=== PATIENT | male | born 1960 | race Caucasian/White ===

== ENCOUNTER → 2017-06-12 12:06 | Outpatient (POV) | payer MEDICARE, SELFPAY | PROVIDERS: PCP Internal Medicine; Visit Provider Internal Medicine | DX: Z00.00 Encounter for general adult medical examination without abnormal findings (principal) ==

== ENCOUNTER → 2017-07-04 13:57 | Outpatient (CLI) | payer MEDICARE, SELFPAY ==
--- NOTE | 2017-07-04 14:09 | CT_ITS ---
EXAM: CT LUNG LOW DOSE WO CONTRAST COMPARISON: 03/25/2015 HISTORY: 57-year-old male, with positive smoking history, asymptomatic ORDERING PHYSICIAN: Claude Sanchez MD PATIENT AGE: 57 years TECHNIQUE: The exam was performed on a GE Light Speed [address] scanner using 2.90 mGy CTDI. A low dose helical CT CHEST was performed on a multi-detector scanner. All CT scans at the facility use one or more dose reduction, viz: automated exposure control; ma/kV adjustment per patient size (including targeted exams where dose is matched to indication; i.e. head); or iterative reconstruction technique. The LDCT was performed in a facility that meets the criteria for the screening program. Data regarding this exam was submitted to ACR which is an approved registry. The order for this exam indicates that it came as a result of a lung cancer screening counseling shard decision-making visit that included all the elements required of such a visit including smoking cessation. The radiologist interpreting this exam meets the [facility] criteria for the LDCT lung cancer screening program. The exam is reported using the Lung-RADS classification scale and reported to the ACR registry. NOTE: This study was performed for the specific purposes of lung cancer screening and is not an alternative to diagnostic chest CT. RADIATION DOSE: CTDI vol(CT dose Index-volume) = 2.90mG DLP (Dose Length Product) = 130.37 mGcm FINDINGS: Severe centrilobular and panlobular emphysematous changes are present with bullous change in the upper lobes left greater than right. 7 mm irregular opacity right upper lobe unchanged. Scattered areas of parenchymal fibrosis once again noted 5 mm noncalcified nodule right lung base posteriorly not readily apparent on the previous study. 5 mm well-defined nodule right lower lobe posteriorly unchanged. 7 mm area of probable parenchymal fibrosis right lower lobe unchanged. 5 mm nodular opacity of the left upper lobe laterally not readily apparent previously. Fibrotic changes inferior lingula. 8 mm parenchymal opacity left upper lobe posteriorly not readily apparent previously possibly related to an area of parenchymal fibrosis. 18 mm node is present in the anterior mediastinum unchanged. Other smaller nodes are present unchanged. There are coronary artery calcifications. IMPRESSION: 1. Lung RADS Category: 3, probably benign 2. Other findings: Severe centrilobular and paraseptal emphysema with bullous change and mild mediastinal adenopathy RECOMMENDATIONS: [address] follow-up in regards to the new 8 mm opacity in the left upper lobe and 7 mm nodular opacity in the right lower lobe
== END ==
PROVIDERS: PCP Family Medicine; Visit Provider Internal Medicine
DX: Z87.891 Personal history of nicotine dependence (principal); Z12.2 Encounter for screening for malignant neoplasm of respiratory organs; R06.02 Shortness of breath; J43.9 Emphysema, unspecified

== ENCOUNTER → 2017-10-02 10:11 | Outpatient (POV) | payer MEDICARE, SELFPAY | PROVIDERS: PCP Family Medicine; Visit Provider Internal Medicine | DX: Z00.00 Encounter for general adult medical examination without abnormal findings (principal) ==

== ENCOUNTER → 2018-01-01 09:28 | Outpatient (CLI) | payer MEDICARE, SELFPAY ==
--- NOTE | 2018-01-01 09:33 | CT_ITS ---
CT chest wo con HISTORY: Follow-up lung nodule, COPD, emphysema, smoker, tobacco use ITS.REASON: COPD WITH EMPHYSEMA ORDERING PHYSICIAN: Claude Sanchez MD PATIENT AGE: 57 years COMPARISON: 03/15/2015 Technique: Axial images obtained with sagittal and coronal reformats. All CT scans at the facility use one or more dose reduction, viz: automated exposure control, ma/kV adjustment per patient size (including targeted exams where dose is matched to indication, i.e. head), or iterative reconstruction technique. FINDINGS: There are scattered mildly prominent lymph nodes in the mediastinum the largest of which is anterior to the root of the pulmonary artery measuring 2.9 x 1.7 cm only slightly more prominent compared to the previous exam at 2.8 x 1.6 cm. Normal heart size. There are severe panlobular emphysematous changes with bolus changes in the lung apices more extensive on the left compared to the right. There are scattered areas of parenchymal scarring similar to the previous exam. There is a 4 mm noncalcified nodule in the right lower lobe posteriorly not significantly changed. There is mild diffuse bronchial thickening. There is an 8 mm nodule in the right upper lobe which is felt to be due to an area of parenchymal fibrosis not significantly changed. No central obstructing lesions. No bronchiectasis. No effusions. No suspicious pulmonary nodules. Upper abdominal images show fatty liver. No acute bony anomalies. IMPRESSION: 1. Severe panlobular emphysema with bullous changes and scattered areas of scarring which are stable. No change 4 mm noncalcified nodule in the right upper lobe 8 mm area of parenchymal scarring right upper lobe 2. Mild mediastinal adenopathy with the largest node on slightly more prominent compared to the previous exam
[2018-01-01 15:40] VITALS: BP 115/70; BP 140/90; PULSE 65; PULSE 81; RESP 16; RESP 22; O2SAT 93; O2SAT 97
[2018-01-01 15:43] VITALS: PULSE 65; PULSE 70
== END ==
PROVIDERS: PCP Family Medicine; Visit Provider Internal Medicine
DX: J43.9 Emphysema, unspecified (principal)
CPT/HCPCS: 71250; 94060; 94618; 94640; 94727; 94729

== ENCOUNTER → 2018-04-23 09:40 | Outpatient (POV) | payer MEDICARE, SELFPAY | PROVIDERS: Visit Provider Internal Medicine | DX: Z00.00 Encounter for general adult medical examination without abnormal findings (principal) ==

== ENCOUNTER → 2022-07-11 11:15 | Outpatient (CLI) | payer MEDICARE, SELFPAY ==
[2022-07-11 14:13] LABS: Alanine Aminotransferase 17 U/L (12-78); Albumin Level 3.9 g/dl (3.5-5.0); Albumin/Globulin Ratio 1.4 (1.1-1.8); Alkaline Phosphatase 92 U/L (38-126); Anion Gap 16.4 mEq/L (5-15); Aspartate Amino Transferase 23 U/L (17-59); Bilirubin,Total 0.4 mg/dl (0.2-1.3); Blood Urea Nitrogen 8 mg/dl (9-20); Calcium 8.8 mg/dl (8.4-10.2); Carbon Dioxide 26 mmol/L (22.0-30.0); Chloride 102 mmol/L (98-107); Chol/HDL Ratio 5.4 (1-3.5); Cholesterol 193 mg/dl (140-200); Estimated Glomerular Filt Rate 98 ml/min (>60); GFR (African American) 119 ML/MIN (>60); Globulin 2.8 g/dL (1.3-3.2); Glucose 84 mg/dl (74-100); HDL Cholesterol 36 mg/dl (40-60); Potassium 4.4 mmoL/L (3.5-5.1); Sodium 140 mmol/L (136-145); Total Protein,Serum 6.7 g/dl (6.3-8.2); Triglycerides 203 mg/dl (30-150); VLDL Cholesterol 41 mg/dL (0-40)
[2022-07-11 14:16] LABS: Basophils # 0.1 K/mm3 (0-0.2); Basophils % 0.6 % (0.1-2.0); Eosinophils # 0.1 K/mm3 (0.0-0.4); Eosinophils % 0.7 % (0.1-12.0); Hematocrit 47.9 % (42.0-52.0); Lymphocytes # 2.5 K/mm3 (0.7-4.5); Lymphocytes % 17.8 % (10-50); Mean Corpuscular HGB Conc 31.3 g/dL (31.8-35.4); Mean Corpuscular Hemoglobin 28.4 pg (27.0-31.2); Mean Corpuscular Volume 90.7 fl (80-94); Mean Platelet Volume 8.2 fl (7.4-10.4); Monocytes # 0.9 K/mm3 (0.1-1.0); Neutrophils # 10.6 K/mm3 (1.8-7.8); Neutrophils % 74.8 % (37.0-80.0); Platelet Count 425 K/mm3 (142-424); Red Blood Count 5.28 M/mm3 (4.60-6.20); Red Cell Distribution Width 15.6 % (11.5-17.5); White Blood Count 14.2 K/mm3 (4.8-10.8)
[2022-07-11 14:42] LABS: Prostate Specific Ag Screen 1.2 ng/ml (0.0-4.0)
== END ==
PROVIDERS: PCP Family Medicine; Visit Provider Family Medicine
DX: F41.9 Anxiety disorder, unspecified (principal); Z12.5 Encounter for screening for malignant neoplasm of prostate; K42.9 Umbilical hernia without obstruction or gangrene; E78.00 Pure hypercholesterolemia, unspecified
CPT/HCPCS: 80053; 80061; 85025; G0103

== ENCOUNTER → 2022-07-17 12:59 | Outpatient (CLI) | payer MEDICARE, SELFPAY ==
--- NOTE | 2022-07-17 13:00 | US_ITS ---
FINAL REPORT CLINICAL HISTORY: claudication, HLD, smoker, FINDINGS: ANKLE-BRACHIAL PRESSURE INDICES Pressure indices are as follows: RIGHT LOWER EXTREMITY: Ankle-brachial pressure index: 0.58 LEFT LOWER EXTREMITY: Ankle-brachial pressure index: 0.55 IMPRESSION: Findings consistent with moderate bilateral vascular disease. Reviewed, Interpreted and Dictated by Corey Castro III, MD Transcribed by Connie Parra Authenticated and [facility][1]
--- NOTE | 2022-07-17 13:00 | CA_ITS ---
FINAL REPORT TECHNIQUE: Color Doppler, duplex Doppler and schafer scale sonography of the bilateral neck arterial vasculature was performed. Velocities were measured in the carotid arteries. Stenosis evaluation based on the validated velocity criteria. CLINICAL HISTORY: bruit FINDINGS: The peak systolic velocity of the right common carotid artery is 86.6 cm/s. The peak systolic velocity of the right internal carotid artery is 77.4 cm/s and end diastolic velocity 21.8 cm/s. A mild amount of plaque is present. The right external carotid artery is patent. The right vertebral artery is patent with antegrade flow. The peak systolic velocity of the left common carotid artery is 116 cm/s. The peak systolic velocity of the left internal carotid artery is 93.7 cm/s and end diastolic velocity 30.2 cm/s. A mild amount of plaque is present. The left external carotid artery is patent.The left vertebral artery is patent with antegrade flow. IMPRESSION: Less than 50% bilateral carotid stenoses. Bilateral patent vertebral arteries with antegrade flow. If indicated, CTA or MRA could further evaluate. Reviewed, Interpreted and Dictated by Corey Castro III, MD Transcribed by Connie Parra Authenticated and [facility]
== END ==
PROVIDERS: PCP Family Medicine; Visit Provider Family Medicine
DX: I73.9 Peripheral vascular disease, unspecified (principal); R09.89 Other specified symptoms and signs involving the circulatory and respiratory systems
CPT/HCPCS: 93880; 93923

== ENCOUNTER → 2022-07-26 10:28 | Outpatient (CLI) | payer MEDICARE, SELFPAY ==
--- NOTE | 2022-07-26 10:44 | ECG_ITS ---
APPROVED REPORT Exam: Resting ECG HR:72 bpm ECG Measurements Heart Rate 72 AXES NH 175 P 51 QRSd 135 QRS 93 QT 383 T 47 QTc 407 Conclusion SINUS RHYTHM RIGHT BUNDLE BRANCH BLOCK [120+ ms QRS DURATION, UPRIGHT V1, 40+ ms S IN I/aVL/V4/V5/V6] ABNORMAL ECG UNCONFIRMED REPORT Electronically signed by : Dakota Carney MD 07/26/2022 21:17:55
[2022-07-26 11:19] LABS: Troponin I < 0.01 ng/ml (0.00-0.034)
== END ==
PROVIDERS: PCP Family Medicine; Visit Provider Physician Assistant
DX: R07.9 Chest pain, unspecified (principal); R94.31 Abnormal electrocardiogram [ECG] [EKG]
CPT/HCPCS: 36415; 84484; 93005

== ENCOUNTER 2022-07-27 13:13 | Observation (INO) | payer MEDICARE, SELFPAY ==
[2022-07-27] VITALS (33 sets, daily range): BP systolic 129–180; BP diastolic 56–103; PULSE 60–88; RESP 16–20; O2SAT 92–99; BMI 26.6
--- NOTE | 2022-07-27 08:19 | IR_ITS ---
APPROVED REPORT Patient Location: Outpatient Payroll Technician: OMAR Aguilar RT (R) PROCEDURES Left heart catheterization Left ventriculogram Selective coronary angiogram Selective engagement of the left subclavian artery Left subclavian artery selective angiogram Pigtail catheter in the abdominal aorta Abdominal aortography Repositioning of the catheter in the abdominal aorta Bilateral iliofemoral runoff Bare-metal balloon mounted stent deployment to the right common iliac artery Bare-metal self-expanding stent deployment to the right external iliac artery in a noncontiguous manner INDICATION SIMON 0.5, Known subclavian artery stenosis/occlusion, High pretest likelihood for coronary artery disease with angina pectoris, Severe stenosis in the right common and right external iliac artery Informed consent was obtained prior to the procedure. COMPLICATIONS NONE Estimated Blood Loss: LESS THAN 10 ML TECHNIQUE One percent lidocaine was used to anesthetize the right groin. The right femoral artery was accessed via the Seldinger technique. A 4-Solomon Islander sheath was placed in the right femoral artery. The JL-4 and JR-4 catheter was also used to perform left heart catheterization left ventriculogram and selective coronary angiogram. The JR4 catheter was used to perform selective angiography of the left subclavian artery. Immediate exchange was performed each time due to the severe iliofemoral disease. A pigtail catheter was placed in the abdominal aorta and abdominal aortography was performed. The catheter was then repositioned and bilateral iliofemoral runoff was performed. Following this therapeutic heparin was administered and the 4 [place] Islander sheath was exchanged for a 6 [place] Islander sheath. Therapeutic ACT was administered giving a therapeutic ACT. An advantage wire was already placed in the aorta through the right groin and an 8 mm x 57 mm balloon mounted stent was deployed in the right common iliac artery at 12 sharron reducing the severe to critical stenosis to 0%. An additional 7 mm x 40 mm self-expanding stent was placed in the distal portion of the right external iliac artery. This was expanded with a 7 mm x 20 mm balloon at 12 sharron. An additional 7 mm x 20 mm self-expanding stent was placed proximal to the first self-expanding stent yet still overlapping the proximal portion and then deployed. The 7 mm x 20 mm balloon was then advanced and deployed at 12 sharron up and down both stents measuring the 2 and making sure they were adequately postdilated. Excellent angiographic results were obtained therefore the apparatus was removed the patient was transferred to the postop putting in stable condition for sheath removal ANGIOGRAPHIC RESULTS The left main artery Normal The left anterior descending artery Is small caliber and widely patent with no stenotic plaque greater than 10% The circumflex artery Dominant normal The right coronary artery Is a nondominant vessel and has 350% stenoses in the proximal and midportion The CAREY ventriculogram reveals Normal 65% The left ventricular end-diastolic pressure 10 mmHg Left subclavian artery is proximally occluded Distal abdominal aorta is mildly atheromatous. Right common iliac artery has a proximal calcified 80% stenosis. The right internal iliac artery is patent. The right external iliac artery has a long tubular 70 to 80% stenosis. The right profunda femoris artery is normal. The right superficial femoral artery is ostially occluded and then reconstitutes at the popliteal level. The anterior tibialis artery is patent in the proximal segment and appears to become subtotally occluded. The right posterior tibialis artery is widely patent as is the right peroneal artery.
[2022-07-27 10:14] LABS: Basophils # 0.1 K/mm3 (0-0.2); Basophils % 0.6 % (0.1-2.0); Eosinophils # 0.3 K/mm3 (0.0-0.4); Eosinophils % 2.3 % (0.1-12.0); Hemoglobin 14.5 g/dL (14.1-18.0); Lymphocytes # 2.4 K/mm3 (0.7-4.5); Lymphocytes % 17.9 % (10-50); Mean Corpuscular HGB Conc 30.8 g/dL (31.8-35.4); Mean Corpuscular Volume 90.8 fl (80-94); Mean Platelet Volume 7.1 fl (7.4-10.4); Monocytes # 0.8 K/mm3 (0.1-1.0); Monocytes % 6.1 % (1.7-9.3); Neutrophils # 9.8 K/mm3 (1.8-7.8); Platelet Count 427 K/mm3 (142-424); Red Blood Count 5.18 M/mm3 (4.60-6.20); Red Cell Distribution Width 15.1 % (11.5-17.5); White Blood Count 13.5 K/mm3 (4.8-10.8)
[2022-07-27 10:15] LABS: Chloride 96 mmol/L (98-107)
[2022-07-27 10:16] LABS: Potassium 4.4 mmoL/L (3.5-5.1); Sodium 138 mmol/L (136-145)
[2022-07-27 10:18] LABS: Blood Urea Nitrogen 10 mg/dl (9-20); Creatinine Clearance Estimated 91 mL/min (50-200); Estimated Glomerular Filt Rate 98 ml/min (>60); GFR (African American) 119 ML/MIN (>60)
[2022-07-27 10:19] LABS: Anion Gap 17.4 mEq/L (5-15); Carbon Dioxide 29 mmol/L (22.0-30.0); Glucose 113 mg/dl (74-100)
--- NOTE | 2022-07-27 13:21 | HMH.PHAINT1 ---
Pharmacy Intervention Comments: home medication list verified using list from outpatient pharmacy
--- NOTE | 2022-07-27 13:27 | P.HP_ITS ---
[facility] Disclaimer: The information contained in this section may have been updated after the patient was seen, as this information can be updated by other users. Medical History Abnormal ankle brachial index (SIMON) Abnormal electrocardiogram [ECG] [EKG] Chest pain Chest pain Claudication Dizziness Dyspnea PAD (peripheral artery disease) Subclavian arterial stenosis Social History (Updated 07/27/22 @ 09:48 by Vannesa Beltran RN) Smoking Status: Current every day smoker alcohol intake: never current occupational status: retired Travel in the last 8 weeks: None Meds Home Medications and Allergies Home Medications Medication Instructions Recorded Confirmed Type albuterol sulfate 90 mcg/actuation 1 puff inhalation QID PRN 05/24/22 07/27/22 Rx aerosol inhaler (Ventolin HFA) shortness of breath or wheezing #8.5 grams alprazolam 1 mg tablet (Xanax) 1 mg PO TID PRN anxiety #60 tabs 07/11/22 07/27/22 Rx paroxetine HCl 20 mg tablet 20 mg PO DAILY mood 07/26/22 07/27/22 History aspirin 81 mg chewable tablet 81 mg PO DAILY #30 tabs 07/27/22 Rx clopidogrel 75 mg tablet (Plavix) 75 mg PO DAILY #30 tabs 07/27/22 Rx fluticasone fur. 100 mcg-umeclid 1 inh inhalation DAILY Allergy 07/27/22 07/27/22 History 62.5 mcg-vilant 25 mcg symptoms inhalat.powder (Trelegy Ellipta) hydrocodone 5 mg-acetaminophen 325 1 tab PO TIDP PRN Pain 07/27/22 07/27/22 History mg tablet New Prescriptions to Start Prescriptions: aspirin Sylvester Lewis clopidogrel [Plavix] Sylvester Lewis Allergies Allergy/AdvReac Type Severity Reaction Status Date / Time No Known Allergies Allergy Verified 07/27/22 09:57 Exam Data for Last 24 hours Vital signs and Labs for Last 24 Hours: Pulse Resp BP Pulse Ox 65 18 144/81 H 95 07/27/22 13:15 07/27/22 13:15 07/27/22 13:15 07/27/22 13:15 Laboratory Results - last 24 hr 07/27/22 10:00: WBC 13.5 H, RBC 5.18, Hgb 14.5, Hct 47.0, MCV 90.8, MCH 28.0, MCHC 30.8 L, RDW 15.1, Plt Count 427 H, MPV 7.1 L, Neut % (Auto) 73.0, Lymph % (Auto) 17.9, [place] % (Auto) 6.1, Eos % (Auto) 2.3, Baso % (Auto) 0.6, Neut # (Auto) 9.8 H, Lymph # (Auto) 2.4, [place] # (Auto) 0.8, Eos # (Auto) 0.3, Baso # (Auto) 0.1 07/27/22 10:00: Sodium 138, Potassium 4.4, Chloride 96 L, Carbon Dioxide 29, Anion Gap 17.4 H, BUN 10, Creatinine 0.80, Estimated Creat Clear 91, Estimated GFR 98, Est GFR ( Amer) 119, Glucose 113 H, Calcium 9.0 I & O for Last 24 hours: Intake & Output 07/24/22 07/25/22 07/26/22 07/27/22 23:59 23:59 23:59 23:59 Weight 84.368 kg
[2022-07-27 14:51] LABS: CATHL Activated Clotting Time 278 SEC (74-125)
--- NOTE | 2022-07-27 17:47 | PC.NURSE ---
PT IS RESTING IN BED WITH FAMILY AT BEDSIDE. ALERT AND ORIENTED X4. PT IS HAVING A DIFFICULT TIME LYING FLAT DUE TO CHRONIC BACK PAIN. MEDICATED PER MAR FOR DISCOMFORT. WHEN PT ARRIVED TO THE FLOOR FROM INDUSTRIAL TECHNOLOGIST PT HAD A SMALL HEMATOMA NOTED WITH BLEEDING. MANUAL PRESSURE WAS HELD FOR 15 MIN. PER INDUSTRIAL TECHNOLOGIST NURSE. NEW DRESSING APPLIED. CATH SITE SOFT. DOPPLER BILATERAL TIBIAL PULSES NOTED. RIGHT PEDAL PULSE THREADY. LUNG SOUNDS HAVE SCATTERED WHEEZES. ABDOMEN SOFT/NON TENDER WITH ACTIVE BOWEL SOUNDS. PT STATED HIS LAST BOWEL MOVEMENT WAS YESTERDAY. CATH VSS. WILL CONTINUE TO MONITOR.
--- NOTE | 2022-07-27 20:09 | EXP.HP ---
History of Present Illness *Admission Date: 07/27/22 *Reason for visit:: PAD *History of present illness: Mr. Abbasi is a 62-year-old male with a past medical history of PAD, Anxiety Disorder, COPD. The patient was seen following vascular procedure. He underwent a large caliber sheath in the right femoral manolo and peripheral revascularization by Cardiology. He will be observed overnight due to large caliber sheath. He is currently denying any complaints. [facility] Disclaimer: The information contained in this section may have been updated after the patient was seen, as this information can be updated by other users. Medical History Abnormal ankle brachial index (SIMON) Abnormal electrocardiogram [ECG] [EKG] Chest pain Chest pain Claudication Dizziness Dyspnea PAD (peripheral artery disease) Subclavian arterial stenosis Family History Other No significant family history Social History Smoking Status: Current every day smoker alcohol intake: never current occupational status: retired Travel in the last 8 weeks: None Review of Systems Review of Systems Review of systems:: pertinent systems reviewed and negative unless documented below Constitutional Constitutional: Reports system reviewed and no additional complaints, except as documented Eyes Eyes: Reports system reviewed and no additional complaints, except as documented ENT Ears, Nose, Mouth, and Throat: Reports system reviewed and no additional complaints, except as documented *Cardiovascular Cardiovascular: Reports claudication *Respiratory Respiratory: Reports system reviewed and no additional complaints, except as documented *Gastrointestinal Gastrointestinal: Reports system reviewed and no additional complaints, except as documented *Genitourinary Genitourinary: Reports system reviewed and no additional complaints, except as documented *Musculoskeletal Musculoskeletal: Reports system reviewed and no additional complaints, except as documented Integumentary/Breasts Skin/Breast: Reports system reviewed and no additional complaints, except as documented *Neurologic Neurologic: Reports system reviewed and no additional complaints, except as documented Psychiatric Psychiatric: Reports system reviewed and no additional complaints, except as documented Endocrine Endocrine: Reports system reviewed and no additional complaints, except as documented Hematologic/Lymphatic Hematologic/Lymphatic: Reports system reviewed and no additional complaints, except as documented Allergic/Immunologic Allergic/Immunologic: Reports system reviewed and no additional complaints, except as documented Meds Home Medications and Allergies Home Medications Medication Instructions Recorded Confirmed Type albuterol sulfate 90 mcg/actuation 1 puff inhalation QID PRN 05/24/22 07/27/22 Rx aerosol inhaler (Ventolin HFA) shortness of breath or wheezing #8.5 grams alprazolam 1 mg tablet (Xanax) 1 mg PO TID PRN anxiety #60 tabs 07/11/22 07/27/22 Rx paroxetine HCl 20 mg tablet 20 mg PO DAILY mood 07/26/22 07/27/22 History aspirin 81 mg chewable tablet 81 mg PO DAILY #30 tabs 07/27/22 Rx clopidogrel 75 mg tablet (Plavix) 75 mg PO DAILY #30 tabs 07/27/22 Rx fluticasone fur. 100 mcg-umeclid 1 inh inhalation DAILY Allergy 07/27/22 07/27/22 History 62.5 mcg-vilant 25 mcg symptoms inhalat.powder (Trelegy Ellipta) hydrocodone 5 mg-acetaminophen 325 1 tab PO TIDP PRN Pain 07/27/22 07/27/22 History mg tablet New Prescriptions to Start Prescriptions: aspirin Sylvester Lewis clopidogrel [Plavix] Sylvester Lewis Allergies Allergy/AdvReac Type Severity Reaction Status Date / Time No Known Allergies Allergy Verified 07/27/22 09:57 Exam Data for Last 24 hours
[2022-07-28] VITALS: BP 103/48; PULSE 83; PULSE 90; RESP 18; TEMP 37; O2SAT 95
[2022-07-28 04:00] VITALS: BP 134/69; PULSE 84; PULSE 87; RESP 17; TEMP 37.1; O2SAT 95; BMI 25.9
--- NOTE | 2022-07-28 04:43 | PC.NURSE ---
A&OX4. TOLERATING RA WELL. PT HAS HAD NO C/O THIS SHIFT, HAS SLEPT T/O NIGHT. DAUGHTER AT BEDSIDE. CATH SITE PRESENT TO R FEMORAL ARTERY, CDI. NO BLEEDING NOTED. PT UP INDEPENDENTLY IN ROOM. VSS.
--- NOTE | 2022-07-28 06:25 | EXP.DC.SUM ---
General Admission date:: 07/27/22 Discharge date: 07/28/22 Hospital Course Hospital Course Hospital Course: 62-year-old male with past medical history of PAD, Anxiety Disorder, COPD presents to undergo vascular procedure. Admitted for monitoring overnight due to need to lay flat and continue to hold pressure at insertion site. - PAD Patient taken to the Anesthetist for evaluation and treatment of peripheral artery disease and coronary disease. Findings as follows: IMPRESSION Moderate coronary artery disease involving the right coronary?is a nondominant vessel and has 50% stenoses in the proximal and midportion Normal ejection fraction Normal left ventricular end-diastolic pressure Occluded left subclavian artery Severe right common iliac artery and right external iliac artery disease with successful stenting reducing the severe disease to 0% with 3 bare-metal stents as described in full cath report Persistent severe stenosis in the left common and left external iliac artery Bilateral ostial SFA occlusions as described in full cath report Two-vessel runoff below the knee on the right with single-vessel runoff below the knee on the left Cardiology recommends the followin. Absolute tobacco cessation 2. LDL less than 55 to be achieved with high intensity statin 3. Start dual antiplatelet therapy 4. Patient admitted overnight due to the large caliber sheath placed in the right femoral groin and peripheral revascularization 5. Patient be brought back to the Anesthetist in 1 to 2 weeks and will undergo left groin access with plans to stent the left common and left external iliac artery 6. 1 to 2 weeks following the left peripheral procedure he will be brought back to the Anesthetist will undergo left radial artery access with plans to revascularize the left subclavian artery in a retrograde manner 7. At this point nothing can be done with the SFA disease.? These are ostially occluded.? Medical management is most warranted and patient must discontinue all tobacco products 8. Maximize antianginal medications Chronic conditions: Anxiety Disorder: Xanax per home regimen COPD: Albuterol inhalers Stable for discharge home. Follow-up with cardiology as recommended above. Continue aspirin and Plavix. Medication sent to pharmacy Exam Data for Last 24 hours Vital signs and Labs for Last 24 Hours: Temp Pulse Resp BP Pulse Ox 98.8 F 84 17 134/69 95 07/28/22 04:00 07/28/22 04:00 07/28/22 04:00 07/28/22 04:00 07/28/22 04:00 Laboratory Results - last 24 hr 07/27/22 10:00: WBC 13.5 H, RBC 5.18, Hgb 14.5, Hct 47.0, MCV 90.8, MCH 28.0, MCHC 30.8 L, RDW 15.1, Plt Count 427 H, MPV 7.1 L, Neut % (Auto) 73.0, Lymph % (Auto) 17.9, [place] % (Auto) 6.1, Eos % (Auto) 2.3, Baso % (Auto) 0.6, Neut # (Auto) 9.8 H, Lymph # (Auto) 2.4, [place] # (Auto) 0.8, Eos # (Auto) 0.3, Baso # (Auto) 0.1 07/27/22 10:00: Sodium 138, Potassium 4.4, Chloride 96 L, Carbon Dioxide 29, Anion Gap 17.4 H, BUN 10, Creatinine 0.80, Estimated Creat Clear 91, Estimated GFR 98, Est GFR ( Amer) 119, Glucose 113 H, Calcium 9.0 07/27/22 12:28: Activated Clotting Time 278 H* I & O for Last 24 hours: Intake & Output 07/25/22 07/26/22 07/27/22 07/28/22 23:59 23:59 23:59 23:59 Intake Total 120 / 120 Output Total 500 / 500 Balance 120 / -130 -500 / -500 Weight 84.028 kg 82.191 kg Constitutional Constitutional: no acute distress *Routine HEENT Exam Head: Present normocephalic Eye: Present EOMI and PERRL ENT: Present mucous membranes moist *Routine Neck Exam Neck: Present supple; Absent lymphadenopathy *Routine Respiratory Exam Respiratory: Present CTA bilaterally *Routine Cardiovascular Exam Cardiovascular: Present RRR *Routine Abdominal Exam Abdominal: Present soft and normoactive bowel sounds; Absent tenderness *Routine Rectal Exam Patient deferred: visual exam *Routine Exam Comments: Right inguinal insertion site clean dry and intact. No ecchymoses or brui
[2022-07-28 06:52] LABS: Basophils # 0.1 K/mm3 (0-0.2); Basophils % 0.4 % (0.1-2.0); Eosinophils # 0.2 K/mm3 (0.0-0.4); Eosinophils % 1.6 % (0.1-12.0); Hematocrit 42.9 % (42.0-52.0); Hemoglobin 13.2 g/dL (14.1-18.0); Lymphocytes # 1.6 K/mm3 (0.7-4.5); Lymphocytes % 11.4 % (10-50); Mean Corpuscular HGB Conc 30.7 g/dL (31.8-35.4); Mean Corpuscular Hemoglobin 27.7 pg (27.0-31.2); Mean Platelet Volume 7.1 fl (7.4-10.4); Monocytes % 6.9 % (1.7-9.3); Neutrophils # 11.1 K/mm3 (1.8-7.8); Neutrophils % 79.6 % (37.0-80.0); Platelet Count 391 K/mm3 (142-424); Red Blood Count 4.77 M/mm3 (4.60-6.20); Red Cell Distribution Width 15.4 % (11.5-17.5); White Blood Count 13.9 K/mm3 (4.8-10.8)
[2022-07-28 07:10] LABS: Alanine Aminotransferase 20 U/L (12-78); Albumin Level 3.5 g/dl (3.5-5.0); Albumin/Globulin Ratio 1.1 (1.1-1.8); Alkaline Phosphatase 72 U/L (38-126); Aspartate Amino Transferase 29 U/L (17-59); Bilirubin,Total 0.4 mg/dl (0.2-1.3); Blood Urea Nitrogen 8 mg/dl (9-20); Calcium 8.3 mg/dl (8.4-10.2); Carbon Dioxide 28 mmol/L (22.0-30.0); Chloride 103 mmol/L (98-107); Creatinine Clearance Estimated 89 mL/min (50-200); Estimated Glomerular Filt Rate 114 ml/min (>60); GFR (African American) 138 ML/MIN (>60); Globulin 3.1 g/dL (1.3-3.2); Glucose 113 mg/dl (74-100); Magnesium 2.1 mg/dl (1.6-2.3); Sodium 135 mmol/L (136-145); Total Protein,Serum 6.6 g/dl (6.3-8.2)
[2022-07-28 08:00] VITALS: BP 134/82; PULSE 90; PULSE 94; RESP 20; TEMP 36.7; O2SAT 96
--- NOTE | 2022-07-28 08:31 | PC.NURSE ---
pt being discharged this date. pt alert and oriented this am sitting on the side of the bed stating he is ready to go home at med pass and assessment. ls wheezing t/o, pt used his Fluticasone inhaler. abdomen soft, nontender, bs active. pt has dressing to right groin, soft no drainage noted. extremities warm to touch. bed in low position, call light w/i reach, family at bedside.
--- NOTE | 2022-07-28 09:21 | HMH.PHACL ---
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 TRYING TO STOP SMOKING.
--- NOTE | 2022-07-28 09:22 | EXP.CARD.PN ---
Subjective Subjective Date: 07/28/22 Time: 09:00 Principal diagnosis: PAD Interval history: This is Inge is a 62-year-old white gentleman who came into the hospital for an outpatient procedure. He underwent left cardiac catheterization and subclavian angiogram as well as bilateral iliofemoral runoff. The patient had mild coronary artery disease that did not require percutaneous intervention. The patient did have a left occluded subclavian artery as well as significant peripheral arterial disease in the bilateral lower extremities. The patient had successful stenting of the right common and right external iliac arteries with 3 stents. He had persistent severe left common and left external iliac disease as well as bilateral ostial SFA occlusions with two-vessel runoff to the knee on the right and a single-vessel runoff on the left. The patient will be brought back to the Explosive Specialist in 2 weeks to undergo stenting of the left common and left external iliac arteries and possibly the left subclavian artery. This morning he denies any chest pain or pressure. He denies any shortness of breath or edema. He denies any fever, chills, nausea, vomiting, diarrhea, PND or orthopnea. The patient denies any leg pain. He does have some tenderness at his right groin site but no hematoma is noted. Exam Data for Last 24 hours Vital signs and Labs for Last 24 Hours: Temp Pulse Resp BP Pulse Ox 98.0 F 94 H 20 134/82 96 07/28/22 08:00 07/28/22 08:00 07/28/22 08:00 07/28/22 08:00 07/28/22 08:00 Laboratory Results - last 24 hr 07/27/22 10:00: WBC 13.5 H, RBC 5.18, Hgb 14.5, Hct 47.0, MCV 90.8, MCH 28.0, MCHC 30.8 L, RDW 15.1, Plt Count 427 H, MPV 7.1 L, Neut % (Auto) 73.0, Lymph % (Auto) 17.9, [place] % (Auto) 6.1, Eos % (Auto) 2.3, Baso % (Auto) 0.6, Neut # (Auto) 9.8 H, Lymph # (Auto) 2.4, [place] # (Auto) 0.8, Eos # (Auto) 0.3, Baso # (Auto) 0.1 07/27/22 10:00: Sodium 138, Potassium 4.4, Chloride 96 L, Carbon Dioxide 29, Anion Gap 17.4 H, BUN 10, Creatinine 0.80, Estimated Creat Clear 91, Estimated GFR 98, Est GFR ( Amer) 119, Glucose 113 H, Calcium 9.0 07/27/22 12:28: Activated Clotting Time 278 H* 07/28/22 06:00: WBC 13.9 H, RBC 4.77, Hgb 13.2 L, Hct 42.9, MCV 90.0, MCH 27.7, MCHC 30.7 L, RDW 15.4, Plt Count 391, MPV 7.1 L, Neut % (Auto) 79.6, Lymph % (Auto) 11.4, [place] % (Auto) 6.9, Eos % (Auto) 1.6, Baso % (Auto) 0.4, Neut # (Auto) 11.1 H, Lymph # (Auto) 1.6, [place] # (Auto) 1.0, Eos # (Auto) 0.2, Baso # (Auto) 0.1 07/28/22 06:00: Sodium 135 L, Potassium 4.0, Chloride 103, Carbon Dioxide 28, Anion Gap 8.0, BUN 8 L, Creatinine 0.70, Estimated Creat Clear 89, Estimated GFR 114, Est GFR ( Amer) 138, Glucose 113 H, Calcium 8.3 L, Magnesium 2.1, Total Bilirubin 0.4, AST 29, ALT 20, Alkaline Phosphatase 72, Total Protein 6.6, Albumin 3.5, Globulin 3.1, Albumin/Globulin Ratio 1.1 I & O for Last 24 hours: Intake & Output 07/25/22 07/26/22 07/27/22 07/28/22 23:59 23:59 23:59 23:59 Intake Total 120 / 120 360 / 360 Output Total 500 / 500 Balance 120 / -130 -140 / -140 Weight 185 lb 4 oz 181 lb 3.2 oz Constitutional Constitutional: no acute distress and average body habitus *Routine HEENT Exam Head: Present normocephalic and atraumatic ENT: Present mucous membranes moist *Routine Neck Exam Neck: Present supple, full ROM and normal carotid upstroke; Absent JVD, carotid bruit or lymphadenopathy *Routine Respiratory Exam Respiratory: Present CTA bilaterally, normal respiratory effort, able to speak in complete sentences and symmetric chest movement *Routine Cardiovascular Exam Cardiovascular: Present RRR, Normal S1 and Normal S2; Absent murmur or gallop *Routine Abdominal Exam Abdominal: Present soft and normoactive bowel sounds; Absent tenderness, distended or organomegaly *Routine Extremities Exam Extremities: Present full ROM, pulses intact and normal capillary refill; Absent cyanosis, clubbing or edema *Routine Skin Exam Skin: Present in
--- NOTE | 2022-07-31 14:15 | CARE MANAGER ---
Spoke with post-discharge phone interview, no issues noted.
== END 2022-07-28 09:30 | disposition home or self-care (01) ==
LOC: 2ND 13:15
PROVIDERS: Internal Medicine; Admitting Provider Internal Medicine Adolescent Medicine; PCP Family Medicine; Visit Provider Internal Medicine Adolescent Medicine
DX: I77.1 Stricture of artery; E78.5 Hyperlipidemia, unspecified; F17.210 Nicotine dependence, cigarettes, uncomplicated; I25.10 Atherosclerotic heart disease of native coronary artery without angina pectoris; Z79.899 Other long term (current) drug therapy; I70.208 Unspecified atherosclerosis of native arteries of extremities, other extremity; J44.9 Chronic obstructive pulmonary disease, unspecified; I65.23 Occlusion and stenosis of bilateral carotid arteries
CPT/HCPCS: G0378; 36225; 36415; 37221; 37223; 80048; 80053; 83735; 85025; 85347; 93458; 99152; 99153; C1725; C1769; C1876; C1894; J1644; J2720; Q9966; Q9967

== ENCOUNTER 2022-08-14 11:26 | Observation (INO) | payer MEDICARE, SELFPAY ==
[2022-08-14] VITALS (43 sets, daily range): BP systolic 78–135; BP diastolic 52–89; PULSE 60–86; RESP 16–20; TEMP 35.6–37.1; O2SAT 90–100; BMI 26.1; BMI 26.4
--- NOTE | 2022-08-14 07:41 | IR_ITS ---
APPROVED REPORT Patient Location: Outpatient Reducing Salon Attendant: OMAR Aguilar RT (R) PROCEDURES Left femoral arterial access Left retrograde femoral angiogram Bare-metal balloon mounted stent deployment to the left common iliac artery INDICATION Peripheral artery disease, Left common iliac artery stenosis Informed consent was obtained prior to the procedure. COMPLICATIONS None Estimated Blood Loss: Less than 10 ML TECHNIQUE 1% lidocaine used anesthetize the left groin left femoral artery is accessed via the sounder technique and a 6 [place] 23 cm bright tip sheath was placed in the left femoral artery. Retrograde angiography was performed and therapeutic heparin was administered giving a therapeutic ACT. A long hydrophilic wire was used to traverse the left common iliac stenosis and an 8 mm x 57 mm VISI pro bare-metal balloon mounted stent was deployed at 10 sharron reducing the stenosis to 0%. Excellent angiographic results were obtained. At the end the procedure the apparatus was removed patient was transferred to the postop holding in stable addition for sheath removal IMPRESSION Successful percutaneous revascularization left common iliac artery severe disease reduced to less than 10% with 1 bare-metal balloon mounted stent PLAN 1. Continue medical management 2. Plan subclavian revascularization in the next 2 to 4 weeks Electronically signed by : Sylvester Lewis MD 08/14/2022 10:56:45
--- NOTE | 2022-08-14 12:59 | HMH.PHAINT1 ---
Pharmacy Intervention Comments: home medication list verified using list from outpatient pharmacy
--- NOTE | 2022-08-14 13:28 | PC.NURSE ---
[id number] to floor by stretcher from cath lab radiological technologist
[2022-08-14 13:40] LABS: Coronavirus 19, PCR Not Detected (NotDetected); Influenza A, PCR Not Detected (NotDetected); Influenza B, PCR Not Detected (NotDetected)
[2022-08-14 14:12] LABS: CATHL Activated Clotting Time 316 SEC (74-125)
--- NOTE | 2022-08-14 16:12 | EXP.HP ---
History of Present Illness *Admission Date: 08/14/22 *Reason for visit:: Vascular procedure *History of present illness: The patient is a 62-year-old male. The patient has a significant history of coronary artery disease, hyperlipidemia, COPD, anxiety,peripheral artery disease, subclavian artery, stenosis, calcification. He was seen following a vascular procedure that was done today. The left groin was utilized to access the left femoral artery for the procedure. A bare-metal balloon mounted stent was placed in the iliac artery. The patient will be medically managed overnight. Patient is currently denying any complaints of pain, headache, nausea, dizziness, chest pain. [facility] Disclaimer: The information contained in this section may have been updated after the patient was seen, as this information can be updated by other users. Medical History Abnormal ankle brachial index (SIMON) Abnormal electrocardiogram [ECG] [EKG] Chest pain Chest pain Claudication Coronary artery disease Dizziness Dyspnea Hyperlipidemia PAD (peripheral artery disease) Subclavian arterial stenosis Family History No significant family history Social History Smoking Status: Current every day smoker alcohol intake: never current occupational status: unemployed and retired Travel in the last 8 weeks: None Review of Systems Review of Systems Review of systems:: pertinent systems reviewed and negative unless documented below Constitutional Constitutional: Reports system reviewed and no additional complaints, except as documented and Reports as per HPI Eyes Eyes: Reports system reviewed and no additional complaints, except as documented ENT Ears, Nose, Mouth, and Throat: Reports system reviewed and no additional complaints, except as documented *Cardiovascular Cardiovascular: Reports system reviewed and no additional complaints, except as documented, Denies chest pain, Denies chest pain at rest, Denies chest pain with activity, Denies diaphoresis, Denies dyspnea, Denies dyspnea on exertion and Denies palpitations *Respiratory Respiratory: Reports system reviewed and no additional complaints, except as documented, Denies cough, Denies dyspnea and Denies dyspnea on exertion *Gastrointestinal Gastrointestinal: Reports system reviewed and no additional complaints, except as documented *Genitourinary Genitourinary: Reports system reviewed and no additional complaints, except as documented *Musculoskeletal Musculoskeletal: Reports system reviewed and no additional complaints, except as documented *Neurologic Neurologic: Reports system reviewed and no additional complaints, except as documented Endocrine Endocrine: Denies palpitations Meds Home Medications and Allergies Home Medications Medication Instructions Recorded Confirmed Type albuterol sulfate 90 mcg/actuation 1 puff inhalation QID PRN 05/24/22 08/14/22 Rx aerosol inhaler (Ventolin HFA) shortness of breath or wheezing #8.5 grams hydrocodone 5 mg-acetaminophen 325 1 tab PO TIDP PRN Pain 07/27/22 08/14/22 History mg tablet alprazolam 1 mg tablet (Xanax) 1 mg PO TID PRN anxiety #90 tabs 08/08/22 08/14/22 Rx fluticasone fur. 200 mcg-umeclid 1 inh inhalation DAILY COPD 08/08/22 08/14/22 History 62.5 mcg-vilant 25 mcg inhalat.powder (Trelegy Ellipta) naloxone 4 mg/actuation nasal spray 1 ea intranasal NEEDED PRN 08/08/22 08/14/22 History (Drug) Ingestion paroxetine HCl 20 mg tablet 20 mg PO DAILY mood #90 tabs 08/08/22 08/14/22 Rx aspirin 81 mg chewable tablet 81 mg PO DAILY Heart disease 08/14/22 08/14/22 History atorvastatin 40 mg tablet (Lipitor) 40 mg PO DAILY Cholesterol 08/14/22 08/14/22 History clopidogrel 75 mg tablet (Plavix) 75 mg PO DAILY Heart disease 08/14/22 08/14/22 History isosorbide mononitrate 60 mg 60 mg PO
--- NOTE | 2022-08-14 17:39 | PC.NURSE ---
pt a&o x4. cath site left groin. dsg cdi, no knots, discoloratiom, swelling noted at site. good circulation to ble. vss. pt has no. pt supine at the momentm can sit up at 1830 and can stand at 1930. miriam lungs exp wheezes t/o. per cardio, pt needs to have a subclavian revascularization on the lue therefore b/p reading will be low. more accurate reading on rue. cb within reach, son at bedside, no concerns at this time.
[2022-08-15] VITALS: PULSE 80
[2022-08-15 04:00] VITALS: BP 118/58; PULSE 78; PULSE 80; RESP 18; TEMP 37.6; O2SAT 92; BMI 26.6
--- NOTE | 2022-08-15 04:51 | PC.NURSE ---
NO ACUTE CHANGES THIS SHIFT. NO C/O PAIN. VSS. CATH SITE IS C/D/I. HAS RESTED WELL. HOPES TO GO HOME EARLY TODAY.
[2022-08-15 06:15] LABS: Basophils # 0.1 K/mm3 (0-0.2); Basophils % 0.6 % (0.1-2.0); Eosinophils # 0.4 K/mm3 (0.0-0.4); Eosinophils % 2.8 % (0.1-12.0); Hematocrit 40.6 % (42.0-52.0); Hemoglobin 12.9 g/dL (14.1-18.0); Mean Corpuscular HGB Conc 31.8 g/dL (31.8-35.4); Mean Corpuscular Hemoglobin 28.6 pg (27.0-31.2); Mean Corpuscular Volume 89.7 fl (80-94); Mean Platelet Volume 7.7 fl (7.4-10.4); Monocytes % 7.3 % (1.7-9.3); Neutrophils # 10.1 K/mm3 (1.8-7.8); Neutrophils % 74.3 % (37.0-80.0); Platelet Count 539 K/mm3 (142-424); Red Blood Count 4.53 M/mm3 (4.60-6.20); Red Cell Distribution Width 15.4 % (11.5-17.5); White Blood Count 13.6 K/mm3 (4.8-10.8)
[2022-08-15 06:28] LABS: Alanine Aminotransferase 18 U/L (12-78); Albumin Level 3.3 g/dl (3.5-5.0); Alkaline Phosphatase 75 U/L (38-126); Anion Gap 17.2 mEq/L (5-15); Aspartate Amino Transferase 22 U/L (17-59); Bilirubin,Indirect 0.2 mg/dL (0.0-0.9); Bilirubin,Total 0.2 mg/dl (0.2-1.3); Bilirubin,Unconjugated 0.3 mg/dL (0.0-1.1); Blood Urea Nitrogen 8 mg/dl (9-20); Calcium 8.2 mg/dl (8.4-10.2); Carbon Dioxide 27 mmol/L (22.0-30.0); Chloride 100 mmol/L (98-107); Chol/HDL Ratio 3.7 (1-3.5); Cholesterol 89 mg/dl (140-200); Creatinine Clearance Estimated 92 mL/min (50-200); Estimated Glomerular Filt Rate 114 ml/min (>60); GFR (African American) 138 ML/MIN (>60); Glucose 105 mg/dl (74-100); HDL Cholesterol 24 mg/dl (40-60); Potassium 4.2 mmoL/L (3.5-5.1); Sodium 140 mmol/L (136-145); Total Protein,Serum 6.4 g/dl (6.3-8.2); Triglycerides 73 mg/dl (30-150); VLDL Cholesterol 15 mg/dL (0-40)
[2022-08-15 06:31] LABS: Alanine Aminotransferase 17 U/L (12-78); Albumin Level 3.1 g/dl (3.5-5.0); Albumin/Globulin Ratio 1.2 (1.1-1.8); Alkaline Phosphatase 74 U/L (38-126); Anion Gap 15.5 mEq/L (5-15); Aspartate Amino Transferase 21 U/L (17-59); Bilirubin,Total 0.2 mg/dl (0.2-1.3); Blood Urea Nitrogen 8 mg/dl (9-20); Calcium 8.3 mg/dl (8.4-10.2); Carbon Dioxide 29 mmol/L (22.0-30.0); Chloride 100 mmol/L (98-107); Creatinine Clearance Estimated 92 mL/min (50-200); Estimated Glomerular Filt Rate 114 ml/min (>60); GFR (African American) 138 ML/MIN (>60); Globulin 2.6 g/dL (1.3-3.2); Glucose 102 mg/dl (74-100); Magnesium 2.1 mg/dl (1.6-2.3); Potassium 4.5 mmoL/L (3.5-5.1); Sodium 140 mmol/L (136-145); Total Protein,Serum 5.7 g/dl (6.3-8.2)
[2022-08-15 06:39] LABS: Direct LDL Cholesterol 49.12 mg/dL (100-129)
--- NOTE | 2022-08-15 07:23 | EXP.PN ---
Subjective *Date: 08/15/22 *Time: 07:30 Exam Data for Last 24 hours Vital signs and Labs for Last 24 Hours: Temp Pulse Resp BP Pulse Ox 99.6 F 78 18 118/58 L 92 L 08/15/22 04:00 08/15/22 04:00 08/15/22 04:00 08/15/22 04:00 08/15/22 04:00 Laboratory Results - last 24 hr 08/14/22 10:37: Activated Clotting Time 316 H* 08/14/22 13:31: SARS-CoV-2 (PCR) Not detected, Influenza A Untype (PCR) Not detected, Influenza Type B (PCR) Not detected 08/15/22 05:50: Sodium 140, Potassium 4.2, Chloride 100, Carbon Dioxide 27, Anion Gap 17.2 H, BUN 8 L, Creatinine 0.70, Estimated Creat Clear 92, Estimated GFR 114, Est GFR ( Amer) 138, Glucose 105 H, Calcium 8.2 L, Total Bilirubin 0.2, Direct Bilirubin 0.0, Conjugated Bilirubin 0.0, Indirect Bilirubin 0.2, Unconjugated Bilirubin 0.3, AST 22, ALT 18, Alkaline Phosphatase 75, Total Protein 6.4, Albumin 3.3 L, Triglycerides 73, Cholesterol 89 L, LDL Cholesterol Direct 49.12 L, VLDL Cholesterol 15, HDL Cholesterol 24 L, Cholesterol/HDL Ratio 3.7 H 08/15/22 05:50: WBC 13.6 H, RBC 4.53 L, Hgb 12.9 L, Hct 40.6 L, MCV 89.7, MCH 28.6, MCHC 31.8, RDW 15.4, Plt Count 539 H, MPV 7.7, Neut % (Auto) 74.3, Lymph % (Auto) 15.0, [place] % (Auto) 7.3, Eos % (Auto) 2.8, Baso % (Auto) 0.6, Neut # (Auto) 10.1 H, Lymph # (Auto) 2.0, [place] # (Auto) 1.0, Eos # (Auto) 0.4, Baso # (Auto) 0.1 08/15/22 05:50: Sodium 140, Potassium 4.5, Chloride 100, Carbon Dioxide 29, Anion Gap 15.5 H, BUN 8 L, Creatinine 0.70, Estimated Creat Clear 92, Estimated GFR 114, Est GFR ( Amer) 138, Glucose 102 H, Calcium 8.3 L, Magnesium 2.1, Total Bilirubin 0.2, AST 21, ALT 17, Alkaline Phosphatase 74, Total Protein 5.7 L, Albumin 3.1 L, Globulin 2.6, Albumin/Globulin Ratio 1.2 I & O for Last 24 hours: Intake & Output 08/12/22 08/13/22 08/14/22 08/15/22 23:59 23:59 23:59 23:59 Output Total 0 / 0 Balance 0 / 0 Weight 83.461 kg 84.64 kg Assessment and Plan *Assessment and plan Plan Claude Abbasi is a 62 year old male with a past medical history of CAD, PAD, subclavian artery stenosis, COPD, HLD and anxiety. He was admitted on 08/14 after an elective procedure; the left groin was utilized to access the left femoral artery; a BMS was placed in the iliac artery. #left common iliac artery stenosis status post BMS placement #PAD #COPD #HLD #CAD #Anxiety Continuing dual antiplatelet therapy with aspirin and plavix. Continuing isosorbide mononitrate. Cardiology is following the patient d/c today if okay from Cardiology's standpoint. Plan for subclavian revascularization in the next 2-4 weeks.
[2022-08-15 08:00] VITALS: BP 125/63; PULSE 63; PULSE 80; RESP 18; TEMP 36.9; O2SAT 93
--- NOTE | 2022-08-15 09:02 | EXP.CARD.PN ---
Subjective Subjective Date: 08/15/22 Time: 08:15 Principal diagnosis: PAD s/p iliac stenting Interval history: This is a 68-year-old white gentleman who is came in for elective vascular procedure yesterday. The patient underwent revascularization of the left common iliac artery with bare-metal stent. The patient tolerated the procedure well. The patient was admitted overnight for IV fluids following the procedure due to the contrast load he received. This morning he denies any chest pain or pressure. He denies any shortness of breath or edema. He denies any fever, chills, nausea, vomiting, diarrhea, PND or orthopnea. The patient denies any groin pain at this time. Runoff shows: IMPRESSION Successful percutaneous revascularization left common iliac artery severe disease reduced to less than 10% with 1 bare-metal balloon mounted stent PLAN 1. Continue medical management 2. Plan subclavian revascularization in the next 2 to 4 weeks Exam Data for Last 24 hours Vital signs and Labs for Last 24 Hours: Temp Pulse Resp BP Pulse Ox 98.4 F 63 18 125/63 93 L 08/15/22 08:00 08/15/22 08:00 08/15/22 08:00 08/15/22 08:00 08/15/22 08:00 Laboratory Results - last 24 hr 08/14/22 10:37: Activated Clotting Time 316 H* 08/14/22 13:31: SARS-CoV-2 (PCR) Not detected, Influenza A Untype (PCR) Not detected, Influenza Type B (PCR) Not detected 08/15/22 05:50: Sodium 140, Potassium 4.2, Chloride 100, Carbon Dioxide 27, Anion Gap 17.2 H, BUN 8 L, Creatinine 0.70, Estimated Creat Clear 92, Estimated GFR 114, Est GFR ( Amer) 138, Glucose 105 H, Calcium 8.2 L, Total Bilirubin 0.2, Direct Bilirubin 0.0, Conjugated Bilirubin 0.0, Indirect Bilirubin 0.2, Unconjugated Bilirubin 0.3, AST 22, ALT 18, Alkaline Phosphatase 75, Total Protein 6.4, Albumin 3.3 L, Triglycerides 73, Cholesterol 89 L, LDL Cholesterol Direct 49.12 L, VLDL Cholesterol 15, HDL Cholesterol 24 L, Cholesterol/HDL Ratio 3.7 H 08/15/22 05:50: WBC 13.6 H, RBC 4.53 L, Hgb 12.9 L, Hct 40.6 L, MCV 89.7, MCH 28.6, MCHC 31.8, RDW 15.4, Plt Count 539 H, MPV 7.7, Neut % (Auto) 74.3, Lymph % (Auto) 15.0, [place] % (Auto) 7.3, Eos % (Auto) 2.8, Baso % (Auto) 0.6, Neut # (Auto) 10.1 H, Lymph # (Auto) 2.0, [place] # (Auto) 1.0, Eos # (Auto) 0.4, Baso # (Auto) 0.1 08/15/22 05:50: Sodium 140, Potassium 4.5, Chloride 100, Carbon Dioxide 29, Anion Gap 15.5 H, BUN 8 L, Creatinine 0.70, Estimated Creat Clear 92, Estimated GFR 114, Est GFR ( Amer) 138, Glucose 102 H, Calcium 8.3 L, Magnesium 2.1, Total Bilirubin 0.2, AST 21, ALT 17, Alkaline Phosphatase 74, Total Protein 5.7 L, Albumin 3.1 L, Globulin 2.6, Albumin/Globulin Ratio 1.2 I & O for Last 24 hours: Intake & Output 08/12/22 08/13/22 08/14/22 08/15/22 23:59 23:59 23:59 23:59 Output Total 0 / 0 Balance 0 / 0 Weight 184 lb 186 lb 9.6 oz Constitutional Constitutional: no acute distress and average body habitus *Routine HEENT Exam Head: Present normocephalic and atraumatic ENT: Present mucous membranes moist *Routine Neck Exam Neck: Present supple, full ROM and normal carotid upstroke; Absent JVD, carotid bruit or lymphadenopathy *Routine Respiratory Exam Respiratory: Present CTA bilaterally, normal respiratory effort, able to speak in complete sentences and symmetric chest movement *Routine Cardiovascular Exam Cardiovascular: Present RRR, Normal S1 and Normal S2; Absent murmur or gallop *Routine Abdominal Exam Abdominal: Present soft and normoactive bowel sounds; Absent tenderness, distended or organomegaly *Routine Extremities Exam Extremities: Present full ROM, pulses intact and normal capillary refill; Absent cyanosis, clubbing or edema *Routine Skin Exam Skin: Present intact and warm; Absent erythema *Routine Neurological Exam Neurological: Present alert, oriented X3 and CN II-XII intact; Absent sensory deficit or motor deficit Routine Psychiatric Exam Psychiatric: Present normal affect Progress Note: A&P Assessment and hung
--- NOTE | 2022-08-15 11:08 | EXP.DC.SUM ---
General Admission date:: 08/14/22 Discharge date: 08/15/22 HPI HPI HPI: The patient is a 62-year-old male. The patient has a significant history of coronary artery disease, hyperlipidemia, COPD, anxiety,peripheral artery disease, subclavian artery, stenosis, calcification. He was seen following a vascular procedure that was done today. The left groin was utilized to access the left femoral artery for the procedure. A bare-metal balloon mounted stent was placed in the iliac artery. The patient will be medically managed overnight. Patient is currently denying any complaints of pain, headache, nausea, dizziness, chest pain. Hospital Course Hospital Course Hospital Course: The patient had no acute events overnight and the following morning had no complaints. The patient will remain on Plavix and aspirin for dual antiplatelet therapy. He will need to be brought back to the lab tech in 2-4 weeks to undergo stenting for his subclavian artery stenosis. Exam Data for Last 24 hours Vital signs and Labs for Last 24 Hours: Temp Pulse Resp BP Pulse Ox 98.4 F 63 18 125/63 93 L 08/15/22 08:00 08/15/22 08:00 08/15/22 08:00 08/15/22 08:00 08/15/22 08:00 Laboratory Results - last 24 hr 08/14/22 10:37: Activated Clotting Time 316 H* 08/14/22 13:31: SARS-CoV-2 (PCR) Not detected, Influenza A Untype (PCR) Not detected, Influenza Type B (PCR) Not detected 08/15/22 05:50: Sodium 140, Potassium 4.2, Chloride 100, Carbon Dioxide 27, Anion Gap 17.2 H, BUN 8 L, Creatinine 0.70, Estimated Creat Clear 92, Estimated GFR 114, Est GFR ( Amer) 138, Glucose 105 H, Calcium 8.2 L, Total Bilirubin 0.2, Direct Bilirubin 0.0, Conjugated Bilirubin 0.0, Indirect Bilirubin 0.2, Unconjugated Bilirubin 0.3, AST 22, ALT 18, Alkaline Phosphatase 75, Total Protein 6.4, Albumin 3.3 L, Triglycerides 73, Cholesterol 89 L, LDL Cholesterol Direct 49.12 L, VLDL Cholesterol 15, HDL Cholesterol 24 L, Cholesterol/HDL Ratio 3.7 H 08/15/22 05:50: WBC 13.6 H, RBC 4.53 L, Hgb 12.9 L, Hct 40.6 L, MCV 89.7, MCH 28.6, MCHC 31.8, RDW 15.4, Plt Count 539 H, MPV 7.7, Neut % (Auto) 74.3, Lymph % (Auto) 15.0, [place] % (Auto) 7.3, Eos % (Auto) 2.8, Baso % (Auto) 0.6, Neut # (Auto) 10.1 H, Lymph # (Auto) 2.0, [place] # (Auto) 1.0, Eos # (Auto) 0.4, Baso # (Auto) 0.1 08/15/22 05:50: Sodium 140, Potassium 4.5, Chloride 100, Carbon Dioxide 29, Anion Gap 15.5 H, BUN 8 L, Creatinine 0.70, Estimated Creat Clear 92, Estimated GFR 114, Est GFR ( Amer) 138, Glucose 102 H, Calcium 8.3 L, Magnesium 2.1, Total Bilirubin 0.2, AST 21, ALT 17, Alkaline Phosphatase 74, Total Protein 5.7 L, Albumin 3.1 L, Globulin 2.6, Albumin/Globulin Ratio 1.2 I & O for Last 24 hours: Intake & Output 08/12/22 08/13/22 08/14/22 08/15/22 23:59 23:59 23:59 23:59 Output Total 0 / 0 Balance 0 / 0 Weight 83.461 kg 84.64 kg Constitutional Constitutional: no acute distress *Routine HEENT Exam Head: Present normocephalic Eye: Present EOMI and PERRL ENT: Present mucous membranes moist *Routine Neck Exam Neck: Present supple; Absent lymphadenopathy *Routine Respiratory Exam Respiratory: Present CTA bilaterally *Routine Cardiovascular Exam Cardiovascular: Present RRR *Routine Abdominal Exam Abdominal: Present soft and normoactive bowel sounds; Absent tenderness *Routine Extremities Exam Extremities: Absent edema or tenderness *Routine Skin Exam Skin: Present warm; Absent rash *Routine Neurological Exam Neurological: Present alert and oriented X3 Results Data Completed and Pending Labs on day of discharge: Labs from last 24 hours 08/15/22 08/15/22 08/15/22 05:50 05:50 05:50 WBC 13.6 H RBC 4.53 L Hgb 12.9 L Hct 40.6 L MCV 89.7 MCH 28.6 MCHC 31.8 RDW 15.4 Plt Count 539 H MPV 7.7 Neut % (Auto) 74.3 Lymph % (Auto) 15.0 [place] % (Auto) 7.3 Eos % (Auto) 2.8 Baso % (Auto) 0.6 Neut # (Auto) 10.1 H Lymph # (Auto) 2.0 [place] # (Auto)
--- NOTE | 2022-08-15 11:50 | HMH.PHACL ---
PHA Java Web Developer Discharge Med Executive Talent Acquisition Consultant: Claude Abbasi has received discharge medication counseling on the following medications: -ASPIRIN (NO QUESTIONS, ALREADY TAKING) -PLAVIX (NO QUESTIONS, ALREADY TAKING) -ATORVASTATIN (NO QUESTIONS, ALREADY TAKING) NO QUESTIONS VERBALIZED AT THIS TIME.
--- NOTE | 2022-08-16 11:22 | CARE MANAGER ---
Spoke with patient related to hospital discharge related to hospital discharge. He states he is doing well and denies any questions or concerns. JOSE L Mullen
== END 2022-08-15 11:52 | disposition home or self-care (01) ==
LOC: 2ND 11:28
PROVIDERS: Internal Medicine; Nurse Practitioner Family; Admitting Provider Internal Medicine Adolescent Medicine; PCP Family Medicine; Visit Provider Internal Medicine Adolescent Medicine
DX: I70.212 Atherosclerosis of native arteries of extremities with intermittent claudication, left leg (principal); I77.1 Stricture of artery; I25.10 Atherosclerotic heart disease of native coronary artery without angina pectoris; E78.5 Hyperlipidemia, unspecified; J44.9 Chronic obstructive pulmonary disease, unspecified; F41.9 Anxiety disorder, unspecified; F17.210 Nicotine dependence, cigarettes, uncomplicated; Z79.899 Other long term (current) drug therapy; Z79.01 Long term (current) use of anticoagulants; Z20.822 Contact with and (suspected) exposure to COVID-19
CPT/HCPCS: G0378; 36415; 37221; 80048; 80053; 80061; 80076; 83735; 85025; 85347; 87636; 99152; C1725; C1769; C1876; C1894; C9803; J1644; Q9966; U0003; U0005

== ENCOUNTER 2022-09-05 14:11 | Observation (INO) | payer MEDICARE, SELFPAY ==
[2022-09-05] VITALS (67 sets, daily range): BP systolic 110–154; BP diastolic 59–97; PULSE 58–96; RESP 15–20; TEMP 37; O2SAT 89–99; BMI 26.5
--- NOTE | 2022-09-05 | IR_ITS ---
APPROVED REPORT Patient Location: Outpatient Laser/Electro Optics Technician: OMAR Carrasco RT (R) PROCEDURES Right femoral arterial access Catheter placed in the left subclavian artery Left subclavian artery antegrade angiogram Angioplasty followed by bare-metal stent deployment to the left subclavian artery Angioplasty followed by bare-metal stent deployment to the left axillary artery INDICATION Left subclavian artery occlusion, Left axillary artery occlusion Informed consent was obtained prior to the procedure. COMPLICATIONS None Estimated Blood Loss: Less than 10 ml TECHNIQUE 1% lidocaine used anesthetize right groin the right femoral nerves accessed via the S[place]er technique and a 4 [place] sheath was placed in the right femoral artery. A JR4 catheter was used to perform left subclavian artery selective angiography. Following this therapeutic heparin was administered and the 4 [place] sheath was was exchanged for a 90 cm 8 Norwegian sheath. The 80 [place] sheath was placed into the left subclavian artery and therapeutic heparin was administered giving a therapeutic ACT. An advantage wire was used to push through the occlusion along with a trailblazer catheter. A 7 mm x 80 mm balloon was used to predilate the stenosis. Following this an 8 mm x 80 mm self-expanding stent was placed in the left axillary artery and extending back toward the left subclavian artery. A 9 mm x 40 mm self-expanding stent was then placed proximal to the for stent yet still overlapping it and deployed. A 9 mm x 27 mm balloon mounted stent was then placed in the ostium of the left subclavian artery overlapping with the 9 mm self-expanding stent. This was deployed at 12 and 14 sharron. A fresh 8 mm balloon was then advanced and deployed in the stenotic area at 12 sharron. An 9 mm x 12 mm balloon was then advanced and used to post dilate the severe stenosis in the left subclavian artery. This was brought back and deployed at 14 sharron in the ostium to flare the stent. Excellent angiograph results were obtained. At the end procedure the patient was transferred the postop putting in stable condition for sheath removal IMPRESSION Chronically occluded left subclavian and left axillary artery Successful percutaneous revascularization of the left subclavian artery and left axillary artery 100% occlusion reduced to 0% with 3 contiguous bare-metal stents as described above PLAN 1. Supportive care overnight 2. Sheath removal 3. Continue aggressive risk factor modification 4. Admission overnight due to large bore sheath in the femoral artery 5. Check labs in the morning and discharge if appropriate criteria are met Electronically signed by : Sylvester Lewis MD 09/05/2022 16:34:20
[2022-09-05 11:48] LABS: Basophils # 0.1 K/mm3 (0-0.2); Basophils % 0.4 % (0.1-2.0); Eosinophils # 0.5 K/mm3 (0.0-0.4); Eosinophils % 2.8 % (0.1-12.0); Hematocrit 48.7 % (42.0-52.0); Lymphocytes # 2.8 K/mm3 (0.7-4.5); Lymphocytes % 16.7 % (10-50); Mean Corpuscular HGB Conc 30.9 g/dL (31.8-35.4); Mean Corpuscular Hemoglobin 27.9 pg (27.0-31.2); Mean Corpuscular Volume 90.5 fl (80-94); Mean Platelet Volume 8.2 fl (7.4-10.4); Monocytes # 0.7 K/mm3 (0.1-1.0); Monocytes % 4.3 % (1.7-9.3); Neutrophils # 12.6 K/mm3 (1.8-7.8); Neutrophils % 75.6 % (37.0-80.0); Platelet Count 402 K/mm3 (142-424); Red Blood Count 5.38 M/mm3 (4.60-6.20); White Blood Count 16.7 K/mm3 (4.8-10.8)
[2022-09-05 12:01] LABS: MANUAL DIFFERENTIAL MANUAL DIFFERENTIAL (MANUAL DIFF)
[2022-09-05 12:03] LABS: Chloride 102 mmol/L (98-107); Potassium 4.2 mmoL/L (3.5-5.1)
[2022-09-05 12:04] LABS: Sodium 140 mmol/L (136-145)
[2022-09-05 12:06] LABS: Anion Gap 14.2 mEq/L (5-15); Blood Urea Nitrogen 6 mg/dl (9-20); Calcium 8.8 mg/dl (8.4-10.2); Carbon Dioxide 28 mmol/L (22.0-30.0); Creatinine Clearance Estimated 91 mL/min (50-200); Estimated Glomerular Filt Rate 98 ml/min (>60); GFR (African American) 119 ML/MIN (>60); Glucose 145 mg/dl (74-100)
[2022-09-05 12:43] LABS: Eosinophils % 1 % (0-3); Lymphocytes % 17 % (10-50); Monocytes % 5 % (2-9); Neutrophils % 77 % (42-76); Platelet Estimate Normal; RBC Morphology Normal; Total Cells Counted 100
[2022-09-05 14:56] LABS: CATHL Activated Clotting Time 383 SEC (74-125)
--- NOTE | 2022-09-05 16:59 | PC.NURSE ---
arrived to floor by stretcher from mobile home laborer
--- NOTE | 2022-09-05 17:23 | EXP.HP ---
History of Present Illness *Admission Date: 09/05/22 *Reason for visit:: subclavian stenosis, left upper extremity *History of present illness: The patient is a 62-year-old male. The patient has a significant history of coronary artery disease, hyperlipidemia, COPD, anxiety,peripheral artery disease, subclavian artery, stenosis, calcification. He was seen following a vascular procedure that was done today. The Right groin was utilized to access the left subclavian artery for the procedure. A bare-metal balloon mounted stent was placed in the subclavian artery. The patient will be medically managed overnight. Patient is currently denying any complaints of pain, headache, nausea, dizziness, chest pain. [facility] Disclaimer: The information contained in this section may have been updated after the patient was seen, as this information can be updated by other users. Medical History Abnormal ankle brachial index (SIMON) Abnormal electrocardiogram [ECG] [EKG] Chest pain Chest pain Claudication Coronary artery disease Dizziness Dyspnea Erectile dysfunction Hyperlipidemia PAD (peripheral artery disease) Subclavian arterial stenosis Family History No significant family history Social History Smoking Status: Current every day smoker alcohol intake: never current occupational status: unemployed and retired Travel in the last 8 weeks: None Review of Systems Review of Systems Review of systems (narrative): 14 point review of systems performed, pertinent positives and negatives as per [facility] Meds Home Medications and Allergies Home Medications Medication Instructions Recorded Confirmed Type albuterol sulfate 90 mcg/actuation 1 puff inhalation QID PRN 05/24/22 09/05/22 Rx aerosol inhaler (Ventolin HFA) shortness of breath or wheezing #8.5 grams hydrocodone 5 mg-acetaminophen 325 1 tab PO TIDP PRN Pain 07/27/22 09/05/22 History mg tablet alprazolam 1 mg tablet (Xanax) 1 mg PO TID PRN anxiety #90 tabs 08/08/22 09/05/22 Rx fluticasone fur. 200 mcg-umeclid 1 inh inhalation DAILY COPD 08/08/22 09/05/22 History 62.5 mcg-vilant 25 mcg inhalat.powder (Trelegy Ellipta) naloxone 4 mg/actuation nasal spray 1 ea intranasal NEEDED PRN 08/08/22 09/05/22 History (Drug) Ingestion paroxetine HCl 20 mg tablet 20 mg PO DAILY mood #90 tabs 08/08/22 09/05/22 Rx aspirin 81 mg chewable tablet 81 mg PO DAILY Heart disease #90 08/28/22 09/05/22 Rx tabs atorvastatin 40 mg tablet (Lipitor) 40 mg PO DAILY Cholesterol #90 tabs 08/28/22 09/05/22 Rx clopidogrel 75 mg tablet (Plavix) 75 mg PO DAILY Heart disease #90 08/28/22 09/05/22 Rx tabs isosorbide mononitrate 60 mg 60 mg PO DAILY High blood pressure 08/28/22 09/05/22 Rx tablet,extended release 24 hr #90 tabs New Prescriptions to Start Prescriptions: Allergies Allergy/AdvReac Type Severity Reaction Status Date / Time No Known Allergies Allergy Verified 09/05/22 11:44 Exam Data for Last 24 hours Vital signs and Labs for Last 24 Hours: Pulse Resp BP Pulse Ox 68 18 127/75 93 L 09/05/22 16:52 09/05/22 16:52 09/05/22 16:52 09/05/22 16:52 Laboratory Results - last 24 hr 09/05/22 11:33: WBC 16.7 H, RBC 5.38, Hgb 15.0, Hct 48.7, MCV 90.5, MCH 27.9, MCHC 30.9 L, RDW 16.0, Plt Count 402, MPV 8.2, Neut % (Auto) 75.6, Lymph % (Auto) 16.7, [place] % (Auto) 4.3, Eos % (Auto) 2.8, Baso % (Auto) 0.4, Neut # (Auto) 12.6 H, Lymph # (Auto) 2.8, [place] # (Auto) 0.7, Eos # (Auto) 0.5 H, Baso # (Auto) 0.1, Total Counted 100, Neutrophils % (Manual) 77 H, Lymphocytes % (Manual) 17, Monocytes % (Manual) 5, Eosinophils % (Manual) 1, Platelet Estimate Normal, RBC Morphology Normal 09/05/22 11:33: Sodium 140, Potassium 4.2, Chloride 102, Carbon Dioxide 28, Anion Gap 14.2, BUN 6 L, Creatinine 0.80, Estimated Creat Colin
[2022-09-06] VITALS: PULSE 80
[2022-09-06 00:07] VITALS: BP 118/79; PULSE 80; RESP 16; O2SAT 99
[2022-09-06 04:00] VITALS: BP 122/69; PULSE 80; PULSE 81; RESP 20; TEMP 36.9; O2SAT 90; BMI 27.2
--- NOTE | 2022-09-06 05:16 | PC.NURSE ---
Pt has not voiced any c/o to staff. DSG to right femoral has small dry serosang fluid, no change noted from previous assessment. is at bedside. Call light within reach.
[2022-09-06 06:24] LABS: Basophils # 0.1 K/mm3 (0-0.2); Basophils % 0.5 % (0.1-2.0); Eosinophils # 0.3 K/mm3 (0.0-0.4); Eosinophils % 2.4 % (0.1-12.0); Lymphocytes # 1.8 K/mm3 (0.7-4.5); Lymphocytes % 13.9 % (10-50); Mean Corpuscular HGB Conc 30.4 g/dL (31.8-35.4); Mean Corpuscular Hemoglobin 27.6 pg (27.0-31.2); Mean Corpuscular Volume 90.8 fl (80-94); Mean Platelet Volume 8.3 fl (7.4-10.4); Monocytes % 7.8 % (1.7-9.3); Neutrophils % 75.4 % (37.0-80.0); Platelet Count 332 K/mm3 (142-424); Red Blood Count 4.74 M/mm3 (4.60-6.20); Red Cell Distribution Width 15.9 % (11.5-17.5); White Blood Count 13.3 K/mm3 (4.8-10.8)
[2022-09-06 06:33] LABS: Alanine Aminotransferase 20 U/L (12-78); Albumin Level 3.6 g/dl (3.5-5.0); Albumin/Globulin Ratio 1.1 (1.1-1.8); Alkaline Phosphatase 90 U/L (38-126); Anion Gap 14.2 mEq/L (5-15); Aspartate Amino Transferase 28 U/L (17-59); Bilirubin,Total 0.6 mg/dl (0.2-1.3); Blood Urea Nitrogen 9 mg/dl (9-20); Calcium 8.5 mg/dl (8.4-10.2); Carbon Dioxide 29 mmol/L (22.0-30.0); Chloride 100 mmol/L (98-107); Creatinine Clearance Estimated 93 mL/min (50-200); Estimated Glomerular Filt Rate 98 ml/min (>60); GFR (African American) 119 ML/MIN (>60); Globulin 3.2 g/dL (1.3-3.2); Glucose 107 mg/dl (74-100); Magnesium 2.2 mg/dl (1.6-2.3); Potassium 4.2 mmoL/L (3.5-5.1); Sodium 139 mmol/L (136-145); Total Protein,Serum 6.8 g/dl (6.3-8.2)
[2022-09-06 06:50] LABS: Hemoglobin 13.2 g/dL (14.1-18.0)
--- NOTE | 2022-09-06 07:25 | EXP.DC.SUM ---
General Admission date:: 09/05/22 Discharge date: 09/06/22 HPI HPI HPI: The patient is a 62-year-old male. The patient has a significant history of coronary artery disease, hyperlipidemia, COPD, anxiety,peripheral artery disease, subclavian artery, stenosis, calcification. He was seen following a vascular procedure that was done today. The Right groin was utilized to access the left subclavian artery for the procedure. A bare-metal balloon mounted stent was placed in the subclavian artery. The patient will be medically managed overnight. Patient is currently denying any complaints of pain, headache, nausea, dizziness, chest pain. Hospital Course Hospital Course Hospital Course: 09/05 He was seen following a vascular procedure that was done today. The Right groin was utilized to access the left subclavian artery for the procedure. A bare-metal balloon mounted stent was placed in the subclavian artery. mild bleeding after procedure addressed by point pressure and pressure dressing applied. no complication. VS stable 09/06. Labs reviewed. grossly normal Hb 13.2 WBC 13.3 slightly improved, X ray ordered. concerned for small right apical pneumothorax with emphysematous changes, bulla, scaring; CT was done Sunday at outside facility by his curatorial assistant, he has an appt to see his curatorial assistant for follow-up tomorrow. weaned off O2, stable on RA (sats 94%), asymptomatic stable for d/c Rounded on patient with nurse practitioner. Personally examined and interviewed patient. Agree with exam findings and care plan as documented. Exam Data for Last 24 hours Vital signs and Labs for Last 24 Hours: Temp Pulse Resp BP Pulse Ox 98.4 F 81 20 122/69 90 L 09/06/22 04:00 09/06/22 04:00 09/06/22 04:00 09/06/22 04:00 09/06/22 04:00 Laboratory Results - last 24 hr 09/05/22 11:33: WBC 16.7 H, RBC 5.38, Hgb 15.0, Hct 48.7, MCV 90.5, MCH 27.9, MCHC 30.9 L, RDW 16.0, Plt Count 402, MPV 8.2, Neut % (Auto) 75.6, Lymph % (Auto) 16.7, [place] % (Auto) 4.3, Eos % (Auto) 2.8, Baso % (Auto) 0.4, Neut # (Auto) 12.6 H, Lymph # (Auto) 2.8, [place] # (Auto) 0.7, Eos # (Auto) 0.5 H, Baso # (Auto) 0.1, Total Counted 100, Neutrophils % (Manual) 77 H, Lymphocytes % (Manual) 17, Monocytes % (Manual) 5, Eosinophils % (Manual) 1, Platelet Estimate Normal, RBC Morphology Normal 09/05/22 11:33: Sodium 140, Potassium 4.2, Chloride 102, Carbon Dioxide 28, Anion Gap 14.2, BUN 6 L, Creatinine 0.80, Estimated Creat Clear 91, Estimated GFR 98, Est GFR ( Amer) 119, Glucose 145 H, Calcium 8.8 09/05/22 13:33: Activated Clotting Time 383 H* 09/06/22 05:35: WBC 13.3 H, RBC 4.74, Hgb 13.2 L D, Hct 43.0, MCV 90.8, MCH 27.6, MCHC 30.4 L, RDW 15.9, Plt Count 332, MPV 8.3, Neut % (Auto) 75.4, Lymph % (Auto) 13.9, [place] % (Auto) 7.8, Eos % (Auto) 2.4, Baso % (Auto) 0.5, Neut # (Auto) 10.0 H, Lymph # (Auto) 1.8, [place] # (Auto) 1.0, Eos # (Auto) 0.3, Baso # (Auto) 0.1 09/06/22 05:35: Sodium 139, Potassium 4.2, Chloride 100, Carbon Dioxide 29, Anion Gap 14.2, BUN 9 D, Creatinine 0.80, Estimated Creat Clear 93, Estimated GFR 98, Est GFR ( Amer) 119, Glucose 107 H D, Calcium 8.5, Magnesium 2.2, Total Bilirubin 0.6, AST 28, ALT 20, Alkaline Phosphatase 90, Total Protein 6.8, Albumin 3.6, Globulin 3.2, Albumin/Globulin Ratio 1.1 I & O for Last 24 hours: Intake & Output 09/03/22 09/04/22 09/05/22 09/06/22 23:59 23:59 23:59 23:59 Intake Total 240 / 240 Output Total 450 / 450 100 / 100 Balance -210 / -210 -100 / -100 Weight 83.915 kg 86.228 kg Radiology Reports for the Last 24 Hours: Chest Xray IMPRESSION: Probable small right apical pneumothorax, and a 4 cm cavity in the left apex.? Follow-up x-ray or CT examination is suggested. Bilateral scar and pleural thickening in the apices and bibasilar scar.. Reviewed, Interpreted and Dictated by Corey Castro III, MD Transcribed by Greta Antonio Authenticated and Electronically Signed by Corey Floyd
[2022-09-06 08:00] VITALS: BP 121/59; PULSE 83; RESP 19; TEMP 36.4; O2SAT 91
--- NOTE | 2022-09-06 08:23 | HMH.PHAINT1 ---
Pharmacy Intervention Comments: MEDICATION RECONCILIATION COMPLETED USING EXTERNAL FILL HISTORY FROM OUTSIDE PHARMACY
--- NOTE | 2022-09-06 08:53 | XR_ITS ---
FINAL REPORT CLINICAL HISTORY: new O2 requirement COMPARISON: None FINDINGS: SINGLE VIEW CHEST The heart size is normal in size. The mediastinum is within normal limits. There is bilateral scar and pleural thickening in the lung apices as well as bibasilar scarring present.. There is a probable small right apical pneumothorax, as well as a 4 cm cavity in the left apex. Would suggest either CT examination or follow-up x-ray The bony thorax is intact. IMPRESSION: Probable small right apical pneumothorax, and a 4 cm cavity in the left apex. Follow-up x-ray or CT examination is suggested. Bilateral scar and pleural thickening in the apices and bibasilar scar.. Reviewed, Interpreted and Dictated by Corey Castro III, MD Transcribed by Greta Antonio Authenticated and [facility]
[2022-09-06 09:07] VITALS: O2SAT 94
--- NOTE | 2022-09-06 10:13 | EXP.CARD.PN ---
Subjective Subjective Date: 09/06/22 Time: 10:13 Principal diagnosis: subclavian artery stenosis Interval history: This is a 62-year-old white gentleman who was admitted to the hospital after an outpatient left subclavian artery stenosis stenting. The patient was brought in and had successful revascularization of the left subclavian artery and left axillary artery with 3 bare-metal stents. The patient tolerated the procedure well. He was kept in the hospital overnight secondary to the large bore sheath in the femoral artery and the contrast load that he was given during the procedure. This morning he denies any chest pain or pressure. He denies any shortness of breath or edema. He denies any fever, chills, nausea, vomiting, diarrhea, PND or orthopnea. He also denies any right groin pain. No hematomas noted. Subclavian angiogram shows: Chronically occluded left subclavian and left axillary artery Successful percutaneous revascularization of the left subclavian artery and left axillary artery 100% occlusion reduced to 0% with 3 contiguous bare-metal stents as described above PLAN 1. Supportive care overnight 2. Sheath removal 3. Continue aggressive risk factor modification 4. Admission overnight due to large bore sheath in the femoral artery 5. Check labs in the morning and discharge if appropriate criteria are met Exam Data for Last 24 hours Vital signs and Labs for Last 24 Hours: Temp Pulse Resp BP Pulse Ox 97.5 F L 83 19 121/59 L 94 L 09/06/22 08:00 09/06/22 08:00 09/06/22 08:00 09/06/22 08:00 09/06/22 09:07 Laboratory Results - last 24 hr 09/05/22 11:33: WBC 16.7 H, RBC 5.38, Hgb 15.0, Hct 48.7, MCV 90.5, MCH 27.9, MCHC 30.9 L, RDW 16.0, Plt Count 402, MPV 8.2, Neut % (Auto) 75.6, Lymph % (Auto) 16.7, [place] % (Auto) 4.3, Eos % (Auto) 2.8, Baso % (Auto) 0.4, Neut # (Auto) 12.6 H, Lymph # (Auto) 2.8, [place] # (Auto) 0.7, Eos # (Auto) 0.5 H, Baso # (Auto) 0.1, Total Counted 100, Neutrophils % (Manual) 77 H, Lymphocytes % (Manual) 17, Monocytes % (Manual) 5, Eosinophils % (Manual) 1, Platelet Estimate Normal, RBC Morphology Normal 09/05/22 11:33: Sodium 140, Potassium 4.2, Chloride 102, Carbon Dioxide 28, Anion Gap 14.2, BUN 6 L, Creatinine 0.80, Estimated Creat Clear 91, Estimated GFR 98, Est GFR ( Amer) 119, Glucose 145 H, Calcium 8.8 09/05/22 13:33: Activated Clotting Time 383 H* 09/06/22 05:35: WBC 13.3 H, RBC 4.74, Hgb 13.2 L D, Hct 43.0, MCV 90.8, MCH 27.6, MCHC 30.4 L, RDW 15.9, Plt Count 332, MPV 8.3, Neut % (Auto) 75.4, Lymph % (Auto) 13.9, [place] % (Auto) 7.8, Eos % (Auto) 2.4, Baso % (Auto) 0.5, Neut # (Auto) 10.0 H, Lymph # (Auto) 1.8, [place] # (Auto) 1.0, Eos # (Auto) 0.3, Baso # (Auto) 0.1 09/06/22 05:35: Sodium 139, Potassium 4.2, Chloride 100, Carbon Dioxide 29, Anion Gap 14.2, BUN 9 D, Creatinine 0.80, Estimated Creat Clear 93, Estimated GFR 98, Est GFR ( Amer) 119, Glucose 107 H D, Calcium 8.5, Magnesium 2.2, Total Bilirubin 0.6, AST 28, ALT 20, Alkaline Phosphatase 90, Total Protein 6.8, Albumin 3.6, Globulin 3.2, Albumin/Globulin Ratio 1.1 I & O for Last 24 hours: Intake & Output 09/03/22 09/04/22 09/05/22 09/06/22 23:59 23:59 23:59 23:59 Intake Total 240 / 240 Output Total 450 / 450 350 / 350 Balance -210 / -210 -350 / -350 Weight 185 lb 190 lb 1.6 oz Constitutional Constitutional: no acute distress and average body habitus *Routine HEENT Exam Head: Present normocephalic and atraumatic ENT: Present mucous membranes moist *Routine Neck Exam Neck: Present supple, full ROM and normal carotid upstroke; Absent JVD, carotid bruit or lymphadenopathy *Routine Respiratory Exam Respiratory: Present CTA bilaterally, normal respiratory effort, able to speak in complete sentences and symmetric chest movement *Routine Cardiovascular Exam Cardiovascular: Present RRR, Normal S1 and Normal S2; Absent murmur or gallop *Routine Abdominal Exam Abdominal: Present soft and normoactive bowel sounds; Absent
--- NOTE | 2022-09-06 10:42 | HMH.PHACL ---
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 PATIENT VERBALIZED NO QUESTIONS AT THIS TIME.
--- NOTE | 2022-09-07 14:56 | CARE MANAGER ---
Left message for post-discharge phone interview.
== END 2022-09-06 11:07 | disposition home or self-care (01) ==
LOC: 2ND 14:11
PROVIDERS: Internal Medicine; Admitting Provider Internal Medicine Adolescent Medicine; PCP Family Medicine; Visit Provider Internal Medicine Adolescent Medicine
DX: I77.1 Stricture of artery (principal); I74.2 Embolism and thrombosis of arteries of the upper extremities; I82.B22 Chronic embolism and thrombosis of left subclavian vein; I70.8 Atherosclerosis of other arteries; I25.10 Atherosclerotic heart disease of native coronary artery without angina pectoris; E78.5 Hyperlipidemia, unspecified; F17.210 Nicotine dependence, cigarettes, uncomplicated; Z79.899 Other long term (current) drug therapy; Z79.01 Long term (current) use of anticoagulants; I70.213 Atherosclerosis of native arteries of extremities with intermittent claudication, bilateral legs; I10 Essential (primary) hypertension
CPT/HCPCS: G0378; 37236; 37237; 71045; 80048; 80053; 83735; 85007; 85025; 85347; 94640; 99152; 99153; C1725; C1769; C1876; C1894; J1644; Q9967

== ENCOUNTER → 2022-09-12 15:38 | Outpatient (CLI) | payer MEDICARE, SELFPAY ==
--- NOTE | 2022-09-12 15:44 | XR_ITS ---
FINAL REPORT CLINICAL HISTORY: questionable ptx..soa COMPARISON: 09/06/2022 FINDINGS: TWO-VIEW CHEST The heart size is normal. The mediastinum is normal. The lungs are hyperinflated. There is extensive biapical pleural and parenchymal scarring. There is superior retraction of the alejandrina. There is no pneumothorax. There is a stable bulla at the left apex. IMPRESSION: No evidence of pneumothorax. Reviewed, Interpreted and Dictated by Guy Pruitt MD Transcribed by Jenae Valdivia Authenticated and [facility]
== END ==
PROVIDERS: PCP Family Medicine; Visit Provider Family Medicine
DX: J44.9 Chronic obstructive pulmonary disease, unspecified (principal)
CPT/HCPCS: 71046

== ENCOUNTER → 2022-09-15 09:33 | Outpatient (CLI) | payer MEDICARE, SELFPAY ==
[2022-09-15 09:57] LABS: Hemoglobin 13.1 g/dL (14.1-18.0)
[2022-09-15 10:04] LABS: Blood Urea Nitrogen 6 mg/dl (9-20); Estimated Glomerular Filt Rate 98 ml/min (>60); GFR (African American) 119 ML/MIN (>60)
== END ==
PROVIDERS: Internal Medicine; PCP Family Medicine; Visit Provider Internal Medicine Adolescent Medicine
DX: I25.10 Atherosclerotic heart disease of native coronary artery without angina pectoris (principal)
CPT/HCPCS: 36415; 82565; 84520; 85014; 85018

== ENCOUNTER 2022-09-28 12:50 | Outpatient (RCR) | payer MEDICARE, SELFPAY | END 2022-11-17 13:00 | disposition home or self-care (01) | LOC: PT 12:50 | PROVIDERS: Visit Provider Internal Medicine | DX: I25.10 Atherosclerotic heart disease of native coronary artery without angina pectoris (principal); Z95.5 Presence of coronary angioplasty implant and graft | CPT/HCPCS: 93798 ==

== ENCOUNTER → 2023-01-04 23:21 | Outpatient (CLI) | payer MEDICARE, SELFPAY ==
[2023-01-04 19:00] LABS: Thyroid Stimulating Hormone 0.78 uIU/mL (0.465-4.68)
== END ==
PROVIDERS: PCP Family Medicine; Visit Provider Family Medicine
DX: F32.A Depression, unspecified (principal)
CPT/HCPCS: 84443

== ENCOUNTER → 2023-03-09 23:18 | Outpatient (CLI) | payer MEDICARE, SELFPAY ==
[2023-03-09 19:15] LABS: Barbiturates Screen,Urine Negative ng/ml (<200)
[2023-03-09 19:16] LABS: Amphetamine/Metha Screen,Urine Negative ng/ml (<1000)
[2023-03-09 19:18] LABS: Benzodiazepines Screen,Urine Positive ng/ml (<200); Cocaine Screen,Urine Negative ng/ml (<300)
[2023-03-09 19:19] LABS: Phencyclidine Screen,Urine Negative ng/ml (<25)
[2023-03-09 19:20] LABS: Methadone Screen,Urine Negative ng/ml (<300)
[2023-03-09 19:21] LABS: Opiate Screen,Urine Positive ng/ml (<300)
[2023-03-09 19:26] LABS: Cannabinoid Screen,Urine Negative ng/ml (<50)
== END ==
PROVIDERS: PCP Family Medicine; Visit Provider Family Medicine
DX: Z79.899 Other long term (current) drug therapy (principal)
CPT/HCPCS: 80305